=== PATIENT | female | born 1935 | race Caucasian/White ===

== ENCOUNTER → 2016-08-28 | Outpatient (CLI) | payer OTHER | LOC: MMPC 09:00 | PROVIDERS: ATTEND Family Medicine | DX: I10 Essential (primary) hypertension (principal); E11.9 Type 2 diabetes mellitus without complications; K21.9 Gastro-esophageal reflux disease without esophagitis; E78.5 Hyperlipidemia, unspecified; Z78.0 Asymptomatic menopausal state; Z86.73 Personal history of transient ischemic attack (TIA), and cerebral infarction without residual deficits | CPT/HCPCS: 99214 ==

== ENCOUNTER 2017-05-13 07:04 | Inpatient (IN) ==
--- NOTE | 2017-05-13 07:20 | PDOC ---
Dyspnea HPI - General Chief Complaint: Dyspnea Stated Complaint: DYSPNEA, LOW O2 SATS Date Seen by Provider: 05/13/17 Time Seen by Provider: 07:17 - History of Present Illness Initial Comments: This patient's a very nice 81-year-old woman who presents to the emergency department today by EMS after having onset of significant shortness of breath while lying down. She states that she over the last few mornings is really had a lot of shortness of breath) 3:00 in the morning. She states that if she gets up and wonders around for couple hours shortness of breath goes away. She denies fever or chills does not have a lot of sputum production. She states that she is a smoker has been for about 60 years has had no karol chest pain no nausea vomiting or other GI symptoms. No urinary symptoms. - Patient Home Medications Home Medications: Home Medications Aspirin 325 mg PO DAILY tab 12/23/15 Pantoprazole Sodium [Protonix] 1 tab PO DAILY #90 tab 01/09/17 Levothyroxine Sodium 25 mcg PO DAILY #90 tab 02/07/17 Atorvastatin Calcium 1 tab PO BEDTIME 05/13/17 Carvedilol 12.5 mg PO DAILY 05/13/17 Clopidogrel Bisulfate [Plavix] 1 tab PO BEDTIME 05/13/17 Losartan Potassium 1 tab PO BEDTIME 05/13/17 Nifedipine [Nifedipine Er] 30 mg PO BEDTIME 05/13/17 Nifedipine [Nifedipine Er] 60 mg PO DAILY 05/13/17 - Patient Allergies Allergies/Adverse Reactions: Allergies 3 Allergy/AdvReac Type Severity Reaction Status Date / Time No Known Drug Allergies Allergy NOT Verified 05/13/17 07:17 APPLICABLE Past Medical History - heen HEENT History: Cataracts, Dentures/Partials Cardiovascular History: Hypertension, CAD, Hyperlipidemia Additional Cardiovasular History: MURMUR, ECHO 2 WEEKS AGO, UNSURE ABOUT RESULTS , Respiratory History: COPD Gastrointestinal History: GERD Genitourinary History: Denies History Endocrine History: Hypothyroidism Musculoskeletal History: Arthritis Neurological History: CVA, TIA Additional Neurological History: 2004 HAD SURGERY, 2006 Blood Disorders: Denies History Psychiatric History: Denies History History of Sexually Transmitted Diseases: No Cancer History: Denies History History of MDRO: No History of Other Communicable Diseases: No Alcohol Use: None In the Past 12 Months, Have Used or Abuse Any Substance: None Previous Surgical History: Yes Type / Date of Surgery: LEFT CATARACT/APPY/ CAROTID ENDARTERECTOMY, BILAT/ COLONOSCOPY/ EGD/ LAPAROTOMY/TUBAL Anesthesia Reactions: No Malignant Hyperthermia: No Significant Family History: Heart disease, Cancer ROS - Limitations ROS Limitations: No Limitations Constitution: REPORTS: Denies Symptoms Neurological: REPORTS: Denies Neuro Symptoms Gastrointestinal: REPORTS: Denies GI Symptoms Endocrine: REPORTS: Denies Symptoms Dyspnea Physical Exam - General Appearance General Appearance: REPORTS: Alert, Cooperative, No Acute Distress - HEENT HEENT: POSITIVE: Head Inspection Nml, Eyes Inspection Nml - Respiratory Respiratory: REPORTS: Other (Bilateral crackles in her bases with no wheezes noted.) - Cardiovascular Cardiovascular: REPORTS: Regular Rate and Rhythm, Heart Sounds Normal - Abdomen Abdomen: Soft: (All Quadrants), Normal Bowel Sounds: (All Quadrants), Denies Tenderness: (All Quadrants) - Skin Skin: REPORTS: Intact, Normal For Race, Warm, Dry - Extremities Extremity: Non-Tender: (All Extremities), Normal ROM: (All Extremities), Normal Inspection: (All Extremities) - Neurological / Psychological Neurological: POSITIVE: Affect Apporpriate Dyspnea Progress - Results Reviewed by me Xrays/CTs/US Reviewed by me: Yes Radiology Findings: Chest x-ray consistent with CHF CBC and BMP: 05/13/17 06:40 05/13/17 06:40 - Patient's Progress MDM / ED Course: This is a very nice patient is admitted to the emergency department with a pretty classic story for CHF. She's had a few nights of paroxysmal nocturnal dyspnea that is worsening and now presents to the emergency department with improved symptoms after she is upright for a while. She has history of CHF but is not taking any diuretics currently. She denies any chest pain whatsoever. No recent chest pain episodes. No palpitations. Therefore she is started on some IV Lasix. Of note she does have a substantial anemia with her hemoglobin down to 7.2. She denies any black stools or any significant abdominal pain or other issues. She did have an x-ray for some discomfort she had in her right lower quadrant but this didn't show much. She states that she has had colonoscopies in the past and with her last one it was felt that she did not need to have any further colonoscopies. Ultimately given her acute CHF her profound anemia likely need for blood transfusions likely need for ongoing IV diuresis and close monitoring she will likely need greater than tube and nights of hospitalization and is admitted to the hospital inpatient status. Patient Care Time - Estimated PCT Patient Care Time (In Minutes): 40 Vital Signs - Recent Vital Signs Vital Signs: Vital Signs (Last 8 hours) Temp Pulse Resp BP Pulse Ox 05/13/17 07:04 98.1 F 87 22 152/97 99 - VS Reviewed Vital Signs Reviewed: Yes Discharge Clinical Impression: CHF (congestive heart failure) Qualifiers: Congestive heart failure type: unspecified congestive heart failure type Congestive heart failure chronicity: acute Qualified Code(s): I50.9 - Heart failure, unspecified Discharge Disposition: Admit to Inpatient Condition: Stable Follow Up With: GENARO HERNÁNDEZ [Primary Care Provider] - Date Decision to Admit to Inpatient: 05/13/17 Time Decision to Admit to Inpatient: 08:35
[2017-05-13 07:26] LABS: BASOPHILS # (AUTO) 0.07 10*3/UL; BASOPHILS % (AUTO) 0.7 % (0-1); EOSINOPHILS # (AUTO) 0.12 10*3/UL; EOSINOPHILS % (AUTO) 1.2 % (0-8); Hematocrit [HCT] 24.9 % (37.0-47.0); Hemoglobin [HGB] 7.2 g/dL (12.0-16.0); LYMPHOCYTES # (AUTO) 1.35 10*3/uL; MEAN CORPUSCULAR HEMOGLOBIN 19.4 PG (27-31); MEAN CORPUSCULAR HGB CONC 28.9 g/dL (33-37); MEAN CORPUSCULAR VOLUME 66.9 FL (81-99); MONOCYTES # (AUTO) 0.93 10*3/UL (0.3-0.8); MONOCYTES % (AUTO) 9.4 % (5-15); NEUTROPHILS # (AUTO) 7.43 10*3/UL; NEUTROPHILS % (AUTO) 74.9 % (50-80); RED BLOOD COUNT 3.72 10^6/uL (4.20-5.40)
[2017-05-13 07:36] LABS: BLOOD UREA NITROGEN 11 mg/dL (7-22); BUN/CREATININE RATIO 13.75 (6-20); MAGNESIUM 1.7 mg/dL (1.6-2.4); SERUM ALBUMIN 4.2 g/dL (3.5-4.8)
[2017-05-13 07:49] LABS: PLATELET MORPHOLOGY COMMENT NORMAL MORPHOLOGY (NORM); RBC MORPHOLOGY COMMENT SEE COMMENTS (NORM); WBC MORPHOLOGY COMMENT NORMAL MORPHOLOGY (NORM)
[2017-05-13] MEDS ORDERED: FUROSEMIDE 10 MG/1 ML - 4 ML IVP ONE (08:18)
--- NOTE | 2017-05-13 09:10 | DI ---
PA /LATERAL CHEST X-RAY, 05/13/2017 7:13 AM : Clinical History: Dyspnea. Hypoxia. Previous Exam: 11/18/2015 and 2 prior chest x-rays dated 01/16/2007 and 05/10/2008. There is no acute soft tissue or bony abnormality. The patient has lost significant weight since the previous exam as well as since the films from 2006 and 2007. Heart size is normal. No acute infiltrat e or effusion is present. This patient has severe chronic interstitial lung disease with prominent Ke rley A and Colin B lines. These would indicate presence of chronic interstitial pulmonary fibrosis. There is flattening of the diaphragms with increase in the retrosternal airspace indicating underlyin g emphysema. The earlier films did not show the typical pattern of emphysema. This patient either has a very prominent azygos vein or azygos lymph node that has not changed significantly over the serial exams. Radiographically, this patient does not have the appearance of chronic pulmonary arterial hyp ertension. There are no pulmonary nodules. Readin. There are prominent Colin B lines Colin B lines consistent with chronic interstitial pulmonary fibrosis that has been present since at least the most recent exam from 11/18/2015. 2. There is no acute infiltrate or effusion. 3. This patient exhibits findings of emphysema as well as chronic weight loss.
[2017-05-13] MEDS ORDERED: NORMAL SALINE 10 ML SYRINGE FLUSH IVP PRN (10:12)
[2017-05-13] MEDS ORDERED: LIDOCAINE W/ SODIUM BICARB 0.5 ML SYR SUBD PRN (10:12)
[2017-05-13] MEDS ORDERED: NIFEDIPINE 60 MG PO SCH (10:15)
--- NOTE | 2017-05-13 11:42 | EKG ---
[address] [address] Measurements Intervals [place] Rate: 94 P: 3 FL: 148 QRS: 43 QRSD: 89 T: 47 QT: 361 QTc: 413 Interpretive Statements SINUS RHYTHM MINIMAL VOLTAGE CRITERIA FOR LVH, CONSIDER NORMAL VARIANT [MEETS CRITERIA IN ONE OF: R(aVL), S(V1), R(V5), R(V5/V6)+S(V1)] MINIMAL ST DEPRESSION [0.025+ mV ST DEPRESSION] Compared to ECG 11/18/2015 02:30:41 ST (T wave) deviation now present Sinus tachycardia no longer present T-wave abnormality no longer present Electronically Signed On 05-13-17 15:27:45 MDT by Jose Hua MD [id number]
--- NOTE | 2017-05-13 12:12 | PDOC ---
HPI - History of Present Illness Date and Time of Service: 05/13/2017 12:20 PM Chief Complaint: Shortness of breath the last 2 weeks mainly at night History of Present Illness: This is a 81 years old female with medical history significant for history of hypertension, coronary artery disease with previous RCA stent in November 2015, history of Takotsubo cardiomyopathy in November 2015 recovered, history of stroke happened at the time of her admission post catheterization resulted in occipital and temporal lobes infarct needed rehabilitation, and hypothyroidism who came into the hospital with history of shortness of breath mainly at night. The last few nights she would wake up with shortness of breath she would walk and go to her living area and then the shortness of breath after some time would go away. Few times she had some pain in the chest mainly on the right side last for hours severity is unclear there is no radiation to the arms or back. No dizziness. Because of the shortness of breath she came into the ER they thought that she had congestive heart failure she was given Lasix and put on oxygen and was admitted. It was also noted that she has anemia with hemoglobin of 7.2. She feels better in terms of the breathing now compared to when she came in. She couldn't tell me exactly whether there is a change in her exertional symptoms as she said she is always been short of breath and she doesn't do much and I could not get from her how far she can walk without getting short of breath. She said she always been short of breath she would walk short distances like going to the bathroom and she would feel short of breath and this been going on since her admission back in November 2015. Patient denied chest pain today. It was hard to get from her whether her appetite is less than before or not. She did lose weight about 12 pounds since November 2015. She denied history of melena or bleeding. Past Medical History Medical History: 1. Takotsubo cardiomyopathy in November 2015 recovered. 2. History of acute bilateral occipital infarction and right temporal infarction in November 2015 likely embolic stroke following left heart catheterization. 3. Severe peripheral vascular disease with stenosis at several sites. 4. History of coronary artery disease with previous non-ST infarct in November 2015 with placement of a stent in the right coronary. 5. Hypertension. 6. Hypothyroidism. 7. Hypercholesterolemia. 8. GERD. 9. Aortic valve insufficiency Surgical History: 1. History of bilateral endarterectomy. 2. History of appendectomy Pertinent Family History: Father had brain aneurysm Tobacco Use: Current Every Day Smoker In the Past 12 Months, Have Used or Abuse Any of the Following Substance: None Alcohol Use: Rarely Medication / Allergies Home Medications: Home Medications Medication Instructions Recorded Confirmed Type RX: Aspirin 325 mg PO DAILY tab 12/23/15 05/13/17 History Pantoprazole Sodium [Protonix] 1 tab PO DAILY #90 tab 01/09/17 05/13/17 Rx RX: Levothyroxine Sodium 25 mcg PO DAILY #90 tab 02/07/17 05/13/17 Rx Clopidogrel Bisulfate [Plavix] 1 tab PO BEDTIME 05/13/17 05/13/17 History Nifedipine [Nifedipine Er] 30 mg PO BEDTIME 05/13/17 05/13/17 History Nifedipine [Nifedipine Er] 60 mg PO DAILY 05/13/17 05/13/17 History RX: Atorvastatin Calcium 1 tab PO BEDTIME 05/13/17 05/13/17 History RX: Carvedilol 12.5 mg PO DAILY 05/13/17 05/13/17 History RX: Losartan Potassium 1 tab PO BEDTIME 05/13/17 05/13/17 History Allergies/Adverse Reactions: Allergies 3 Allergy/AdvReac Type Severity Reaction Status Date / Time No Known Drug Allergies Allergy NOT Verified 05/13/17 20:49 APPLICABLE Review of Systems - Review of Systems All Systems: Reviewed & No Additional Complaints Except as Stated Exam - Vitals Vital Signs: Vital Signs Temperature 98.2 F Temperature Source Temporal Artery Scan Pulse Rate [Pulse Oximeter 97 Right] Respiratory Rate 18 Blood Pressure [Right Arm] 155/74 Pulse Ox 92 Oxygen Flow Rate 6 Oxygen Delivery Method Nasal Cannula Height 5 ft 1 in Weight 111 lb - General General Appearance: No Acute Distress - Head Head Exam: Normal Inspection - Eye Eye Exam: POSITIVE: Normal Appearance - ENT ENT Exam: POSITIVE: Normal Exam - Neck Neck Exam: Normal Inspection - Respiratory Additional Respiratory Exam Details: Minimal crackles at the bases. - Cardiovascular Cardiovascular Exam: POSITIVE: RRR, Systolic Murmur - GI/Abdominal GI/Abdominal Exam: POSITIVE: Normal Bowel Sounds, Non Tender, Non Distended, Soft - Rectal Rectal Exam: POSITIVE: Deferred - External Exam: POSITIVE: Deferred - Extremities Additional Extremities Exam Details: There is no edema, very difficult to feel the pulses in the lower extremities, she has a history though of for severe peripheral vascular disease - Neurological Neurological Exam: POSITIVE: Alert, Oriented x 3, CN II-XII Intact, Speech Intact / Clear, Moves All Extremities Equally - Psychiatric Psychiatric Exam: POSITIVE: Normal Affect - Integumentary Integumentary Exam: POSITIVE: Pallor Results - Labs CBC and BMP: 05/13/17 06:40 05/13/17 06:40 - EKG Data Rate: Normal - EKG Data Additional EKG Details: EKG shows sinus rhythm, terminal negative T inversion in V1 and V2. Possible LVH. - Imaging Status: Report Reviewed by Me (Chest x-ray showed prominent Colin B-lines consistent with chronic interstitial pulmonary fibrosis that has been present since at least the most recent exam from 11/18/2015. There is no acute infiltration or effusion. Findings also of emphysema.) Assessment and Plan - Patient Problems (1) Shortness of breath Current Visit: Yes Status: Acute Comment: This looks to be multifactorial in origin, she has a history of cardiomyopathy from before although the daughter said that's she recovered from it, the chest x-ray suggested also COPD and the presence of anemia also likely is contributing to her shortness of breath. I think will do an echocardiogram to see what's her ejection fraction now and if this is acceptable we may choose to give her 1 unit of blood followed by Lasix needed And then will repeat her labs in the morning and see her symptoms and then decide whether we can give her another unit of blood. We'll do an EKG Code(s): R06.02 - Shortness of breath (2) Anemia Current Visit: Yes Status: Acute Comment: This looks like iron deficiency anemia we did order iron profile and ferritin and we did send for B12 and folate level. Code(s): D64.9 - Anemia, unspecified (3) Hypertension Current Visit: Yes Status: Acute Comment: Continue previous medications. Apparently she was also on nifedipine and she stopped taking it about 2 or 3 weeks ago because of low blood pressure. I think will give her medications and then will watch her blood pressure as her blood pressure was high when she came into the floor then will decide whether need to give her another dose of Lasix or we give just after the blood transfusion. For now they don't want the further testing for the etiology of the anemia. Code(s): I10 - Essential (primary) hypertension (4) History of coronary artery disease Current Visit: Yes Status: Acute Comment: Continue aspirin and Plavix. Code(s): Z86.79 - Personal history of other diseases of the circulatory system (5) Hypothyroidism Current Visit: Yes Status: Acute Comment: Same medications. Code(s): E03.9 - Hypothyroidism, unspecified
[2017-05-13] MEDS ORDERED: LEVOTHYROXINE 50 MCG TABLET PO SCH (13:00)
[2017-05-13] MEDS: ASPIRIN 325 MG TABLET PO SCH (13:12)
[2017-05-13] MEDS: CARVEDILOL 12.5 MG TABLET PO SCH (13:12)
[2017-05-13] MEDS: LEVOTHYROXINE 25 MCG TABLET PO SCH (13:12)
[2017-05-13] MEDS: PANTOPRAZOLE 40 MG TABLET PO SCH (13:12)
[2017-05-13] MEDS ORDERED: FUROSEMIDE 10 MG/1 ML - 2 ML VIAL IVP ONE (16:59)
[2017-05-13] MEDS ORDERED: Sodium Chloride 0.9% 500 ML PRIMARY IV ONE (16:59)
[2017-05-13] MEDS ORDERED: NIFEdipine 30 MG ER 24H TABLET PO SCH (21:00)
[2017-05-13] MEDS: ATORVASTATIN 40 MG TABLET PO SCH (22:15)
[2017-05-13] MEDS: CLOPIDOGREL 75 MG TABLET PO SCH (22:15)
[2017-05-13] MEDS: LOSARTAN 50 MG TABLET PO SCH (22:15)
[2017-05-13] MEDS ORDERED: FUROSEMIDE 10 MG/1 ML - 2 ML VIAL ONE (23:38)
[2017-05-14] MEDS: LEVOTHYROXINE 25 MCG TABLET PO SCH (04:47)
[2017-05-14] MEDS ORDERED: LEVOTHYROXINE 25 MCG TABLET PO SCH (05:30)
[2017-05-14] MEDS ORDERED: LEVOTHYROXINE 50 MCG TABLET PO SCH (05:30)
[2017-05-14 05:38] LABS: Hematocrit [HCT] 26.4 % (37.0-47.0); Hemoglobin [HGB] 7.9 g/dL (12.0-16.0)
[2017-05-14 05:51] LABS: BLOOD UREA NITROGEN 15 mg/dL (7-22); BUN/CREATININE RATIO 18.75 (6-20)
[2017-05-14] MEDS ORDERED: FUROSEMIDE 10 MG/1 ML - 4 ML IVP SCH ×2 (07:00)
[2017-05-14] MEDS ORDERED: POTASSIUM CHLORIDE 20 MEQ TAB PO SCH (09:00)
[2017-05-14] MEDS ORDERED: Influenza 17-18 Vaccine (6mo+) Quad 60mcg/0.5ml PF IM ONE (09:01)
[2017-05-14] MEDS: ASPIRIN 325 MG TABLET PO SCH (09:08)
[2017-05-14] MEDS: POTASSIUM CHLORIDE 20 MEQ TAB PO SCH ×3 (09:10→21:36)
[2017-05-14] MEDS: PANTOPRAZOLE 40 MG TABLET PO SCH (09:10)
[2017-05-14] MEDS: CARVEDILOL 12.5 MG TABLET PO SCH (09:11)
--- NOTE | 2017-05-14 10:09 | PDOC(PROG) ---
Interval History: Patient is doing well is not complaining of shortness of breath or chest pain no nausea no vomiting no blood in her stools or black stools. Objective : Data - Labs CBC and BMP: 05/14/17 04:50 05/14/17 04:50 Objective : Exam - General General Appearance: Cooperative - Head Head Exam: Normal Inspection, Normocephalic, Atraumatic - Eye Eye Exam: Normal Appearance, PERRL, EOMI - Respiratory Respiratory Exam: Clear to Auscultation - Bilaterally, Breathing Non Labored, Normal To Percussion, Normal to Percussion and Palpation - Cardiovascular Cardiovascular Exam: RRR, No Murmur, No Clicks, No Gallops - GI/Abdominal GI/Abdominal Exam: Non Tender, Non Distended, Soft - Extremities Extremities Exam: No Clubbing Present, No Edema Present, No Cyanosis Present Assessment and Plan - Patient Problems (1) Anemia Current Visit: Yes Status: Acute Code(s): D64.9 - Anemia, unspecified (2) CHF (congestive heart failure) Current Visit: Yes Status: Acute Code(s): I50.9 - Heart failure, unspecified Qualifiers: Congestive heart failure type: unspecified congestive heart failure type Congestive heart failure chronicity: acute Qualified Code(s): I50.9 - Heart failure, unspecified (3) History of coronary artery disease Current Visit: Yes Status: Acute Code(s): Z86.79 - Personal history of other diseases of the circulatory system - Assessment / Plan Additional Assessment/Plan Details: This very nice 81-year-old female with the past medical history significant for stent in the subclavian vein and the subsequent strokes from the stent and history of coronary artery disease comes in with some shortness of breath was found to be anemic and transfused 1 unit of packed red blood cells. She was also diuresed the with IV Lasix because her BMP was in the 6000 range. Echo was performed and results are pending. I had discussion with the daughter and patient. In regards to her anemia they do not want any further workup like EGD or colonoscopy since they are not going to do anything about it if they find anything they do not want to have a stress test since they will pursue no further treatment in summary they do not want any invasive testing done at this point. We will put the patient on iron and B12 and folic acid she is hemodynamically stable. There is no edema present if the CBC stays stable tomorrow she can be discharged home with a CBC checked in a week to make sure her hemoglobin is rising. Nursing was present with this discussion
[2017-05-14] MEDS ORDERED: PANTOPRAZOLE 40 MG TABLET PO SCH (10:14)
[2017-05-14] MEDS: ATORVASTATIN 40 MG TABLET PO SCH (21:36)
[2017-05-14] MEDS: CLOPIDOGREL 75 MG TABLET PO SCH (21:36)
[2017-05-14] MEDS: LOSARTAN 50 MG TABLET PO SCH (21:36)
[2017-05-15 04:25] VITALS: RESP 20
[2017-05-15] MEDS: LEVOTHYROXINE 25 MCG TABLET PO SCH (04:42)
[2017-05-15 04:48] LABS: Hematocrit [HCT] 26.1 % (37.0-47.0); Hemoglobin [HGB] 7.8 g/dL (12.0-16.0); MEAN CORPUSCULAR HEMOGLOBIN 20.6 PG (27-31); MEAN CORPUSCULAR HGB CONC 29.9 g/dL (33-37); MEAN CORPUSCULAR VOLUME 68.9 FL (81-99); MEAN PLATELET VOLUME 10.1 FL (7.4-12.2); RED BLOOD COUNT 3.79 10^6/uL (4.20-5.40)
[2017-05-15] MEDS ORDERED: Magnesium Sulfate 2gm (Premix) 2 GM/50 ML BAG IV ONE (06:04)
[2017-05-15 06:13] LABS: BLOOD UREA NITROGEN 13 mg/dL (7-22); BUN/CREATININE RATIO 18.57 (6-20); SERUM ALBUMIN 3.4 g/dL (3.5-4.8)
--- NOTE | 2017-05-15 06:19 | DCSUMMARY ---
Hospitalization Summary Admit Date: 05/13/17 Discharge Date: 05/15/17 Primary Diagnosis:: CHF Secondary Diagnosis:: htn Hospital Course: This very nice 81-year-old female with past medical history significant for peripheral vascular disease and history of coronary artery disease with a subclavian stent comes in with shortness of breath. She was treated with IV Lasix and echo was performed. She also was found to have low potassium and low mag which were both replaced. #1 in regards to her CHF with elevated BNP discussed on the phone with the [facility] cardiology echo does not look much different from previous one A be some pulmonary hypertension with some LVH and diastolic failure #2 regards to her hypertension which was somewhat uncontrolled in the 180 range she has been started on Norvasc 10 mg on top of Starla on losartan and Coreg which is controlling the blood pressure very nicely prescription was given for this. #3 in regards to her anemia most likely from chronic blood loss there is no apparent blood in her stools or hematemesis he recommended EGD colonoscopy family and patient is not interested in any further workup or any invasive Damien procedure and would just like to treated with the supplementation of folic acid and iron and that she will be rechecking the CBC next week her daughters and nurse practitioner and she states that she has a good handle on things. I did tell her maybe she should visit with cardiology to see if at all maybe could come off the Plavix if indicated if her hemoglobin continues to drop. Patient is hemodynamically stable. She will be discharged home in stable improved condition nursing and family and patient on agreement Exam - Vitals Vital Signs: Vital Signs Temperature 98.7 F Temperature Source Oral Pulse Rate [Apical] 72 Pulse Rate [Pulse Oximeter 80 Right] Pulse Rate 78 Respiratory Rate 20 Blood Pressure [Left Arm] 194/62 Blood Pressure [Right Arm] 182/57 Blood Pressure 147/51 Pulse Ox 92 Oxygen Flow Rate .5 Oxygen Delivery Method Room Air Height 5 ft 1 in Weight 104 lb 12.8 oz - General General Appearance: No Acute Distress, Cooperative - Head Head Exam: Normal Inspection, Normocephalic - Eye Eye Exam: POSITIVE: Normal Appearance - Respiratory Respiratory Exam: POSITIVE: Clear to Auscultation - Bilaterally, Breathing Non Labored, Normal to Percussion and Palpation - Cardiovascular Cardiovascular Exam: POSITIVE: RRR, No Murmur, No Clicks, No Gallops - GI/Abdominal GI/Abdominal Exam: POSITIVE: Non Tender, Non Distended, Soft - Extremities Extremities Exam: POSITIVE: No Clubbing Present, No Edema Present, No Cyanosis Present Patient Problems - Patient Problem List (1) Anemia Current Visit: Yes Status: Acute Code(s): D64.9 - Anemia, unspecified Category: Medical (2) CHF (congestive heart failure) Current Visit: Yes Status: Acute Code(s): I50.9 - Heart failure, unspecified Qualifiers: Congestive heart failure type: unspecified congestive heart failure type Congestive heart failure chronicity: acute Qualified Code(s): I50.9 - Heart failure, unspecified Category: Medical (3) History of coronary artery disease Current Visit: Yes Status: Acute Code(s): Z86.79 - Personal history of other diseases of the circulatory system Category: Medical
[2017-05-15] MEDS ORDERED: FUROSEMIDE 20 MG TABLET PO SCH (07:00)
[2017-05-15 07:49] VITALS: BP 153/65; TEMP 97.2; O2SAT 91
[2017-05-15] MEDS: POTASSIUM CHLORIDE 20 MEQ TAB PO SCH (08:49)
[2017-05-15] MEDS: ASPIRIN 325 MG TABLET PO SCH (08:49)
[2017-05-15] MEDS: CARVEDILOL 12.5 MG TABLET PO SCH (08:49)
[2017-05-15] MEDS: PANTOPRAZOLE 40 MG TABLET PO SCH (08:49)
[2017-05-15] MEDS ORDERED: FOLIC ACID 1 MG TABLET PO SCH (09:00)
[2017-05-15] MEDS ORDERED: FERROUS GLUCONATE 324 MG TABLET PO SCH (09:00)
== END 2017-05-15 10:06 | disposition home or self-care (01) | DRG 293 ==
LOC: ER 07:04 → MED/SURG 08:46
PROVIDERS: ADMIT Internal Medicine; ATTEND Internal Medicine